=== PATIENT | male | born 1995 | race African-American/Black ===

== ENCOUNTER 2020-02-28 07:07 | Day surgery (SDC) | payer OTHER, SELFPAY ==
[2020-02-28 07:24] VITALS: BP 140/89; PULSE 83; RESP 16; TEMP 36.9; O2SAT 97; BMI 29.4
[2020-02-28] MEDS: Lactated Ringers 1,000 ML 100 ML IV ×2 (07:31→09:33)
[2020-02-28] MEDS: Bacitracin 500 UNITS/GM PACKET (08:54)
--- NOTE | 2020-02-28 08:58 | PCM.OPRPT ---
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 This had previously been attempted at repair but however it failed and clinical examination showed subsequent development of a cholesteatoma of the tympanic membrane and reattempted repair for prevention of development of middle ear disease and brought her cholesteatoma was advised. The risks of COVID-19 exposure with surgery in this time period was discussed and the patient was agreeable with this risk and return for reduced progression of his ear disease. The risks, alternatives, potential complications, and benefits were discussed at length and any questions answered to the patient and/or caregiver's satisfaction. Witnessed informed consent was obtained in the office, and the patient and/or caregiver was agreeable to proceed. Procedure went as follows: The patient was identified in the preoperative holding brought to the operating room and was placed under general anesthesia and intubated. The operative ear had been site marked preoperatively in accordance with the office notes patient exam and history. The patient was then placed under general anesthesia and the left ear prepped and draped in usual sterile fashion. The planned postauricular incision site for fascial graft harvest was then injected with 1% lidocaine with 100,000 epinephrine for a total of 2 mL. Through a #5 otic speculum the operative microscope was brought into the field and the external auditory canal and tympanic membrane visualized. The lateral canal wall was then injected with 1% lidocaine with 100,000 epinephrine for a total of 0.5 cc. Using a sickle knife the edge of the perforation was then sharply resected including the cholesteatoma developing within the tympanic membrane and withdrawn from the ear canal with a cup forceps. The position of the perforation allowed full visualization of the edge circumferentially and a healthy middle ear cleft was noted. Given this repair with a stuffed graft was then elected and an epinephrine soaked cotton ball was placed for hemostasis and attention turned to the fascial graft harvest. A 3 cm incision was then created a 15 blade scalpel posterior to the auricle at the previous injection site. The skin and subcutaneous tissues were then dissected and the posterior auricular muscle sharply transected. The subfascial plane was then widely developed. There is noted to be absent tissue consistent with his prior graft attempt. Posteriorly to this a 1.5 x 1.5 centimeter portion of temporalis fascia was then harvested and set aside on a Binh block for reconstruction of the tympanic membrane. The wound edges were then cauterized with electrocautery for hemostasis and closed deeply with interrupted 3-0 Vicryl sutures followed by running 5-0 Monocryl to the skin. This completed the graft harvest portion of the procedure. Attention was then turned to reconstruction of the tympanic membrane. The operative microscope was replaced and through an otic speculum the middle ear cleft filled with Gelfoam packing material after removal of the epinephrine soaked cotton balls. The previously harvested graft tissue was then placed in an underlay fashion ensuring that it completely covered the tympanic membrane perforation. An additional piece of fascia was then placed overlying the graft edge to ensure full coverage and Gelfoam material then placed to hold the composition tissue in place. Bacitracin ointment was then applied to secure the material and the patient then cleaned of prep solution. The patient was then returned to anesthesia, revived and extubated without complication having tolerated the procedure well. Type of Anesthesia:: General Anesthesiologist: Yair Francis Special Medications: none Specimen's removed: cholesteatoma Drains: none Estimated Blood Loss (mL): 0 mL Fluids Replaced: 1100 mL Grafts/Implants Used: fascia graft - Complications none - Admit VTE Documentation VTE Present on Admission: No VTE Mechan Device Prophylaxis: SCD's VTE Pharm Prophylaxis ordered?: No
--- NOTE | 2020-02-28 09:05 | CHO_PTH ---
PATIENT: KEI DANIEL LOC: [facility] U#:[id number] AGE/SX: 24/M ROOM: RE02/28/[address]: Dr. Yair Valle MD : 1995 BED: DIS: 02/28/2020 SPEC #: [id number] RECD: 02/28/20 09:31 STATUS: JAMILA ANDREA #: [id number] GRAHAM: 02/28/20 09:[address]: Yair Valle DEPT: SURGICAL PATHOLOGY RECD BY: Jesus Mae ENTERED: 02/28/20 09:41 SP TYPE: CHOLESTEAT OTHR DR: Dr. Luis Miguel Lewis MD Tissues: Soft tissues, NOS Procedures: Surgery Specimen Level III HEADER OPERATION: Tympanoplasty, grafting of autologous soft tissue PRE-OP DIAGNOSIS: Central perforation of tympanic membrane; cholesteatoma tympanum; left ear tinnitus; left conductive hearing loss TISSUE SUBMITTED: Cholesteatoma MICROSCOPIC DIAGNOSIS Cholesteatoma of left ear, biopsy: Benign polypoid fragment of fibroepithelium with degenerative change suggestive of cholesteatoma. AM:felipe 03/02/20 COMMENT Case has been reviewed in consultation with Dr. Carroll who concurs with the above diagnosis. IDC:SUHAS MICROSCOPIC DESCRIPTION Slides are reviewed. GROSS DESCRIPTION Received in fixative is one container labeled with the patient's name and designated cholesteatoma. The specimen consists of one irregular fragment of mccabe-white soft tissue that measures 0.2 x 0.1 x 0.1 cm. The specimen is totally submitted in one cassette. / SJ:felipe 02/28/20 TC:5 CPT: 33435
--- NOTE | 2020-02-28 09:08 | PCM.DC ---
- Discharge Diagnoses Current Active Problems: Current Active and Chronic Problems Tympanic membrane central perforation (Chronic) Cholesteatoma of tympanum, left ear (Chronic) You will use the following diet at home:: No restrictions Discharge Activity: Return to Normal Activity Call your doctor if your incision/area has: Sudden Increased Bleeding, Increased Pain/ Swelling Call your doctor if you observe: Fever of 101 or Higher, Uncontrolled pain Allergies/Adverse Reactions: Allergies No Known Allergies Allergy (Verified 02/28/20 07:14) Medications to take at Discharge Fluticasone 0.05% [Flonase Nasal [place]] 2 spray NASAL DAILY 02/21/20 Multivitamin 1 ea PO DAILY 02/21/20 Orders to be completed after discharge: CORONAVIRUS 19, ABBY SCREEN Time Frame: 02/24/20, Facility: [facility], Location: Laboratory Primary Care Physician: Luis Miguel Lewis MD [Primary Care Provider] - Test Results: Test results from this visit will be discussed in further detail at your follow-up appointment, if applicable. Please Follow Up With: Yair Valle MD When: 10 days
[2020-02-28 09:18] VITALS: BP 125/88; BP 140/89; PULSE 66; RESP 16; TEMP 36.3; O2SAT 97
[2020-02-28 09:30] VITALS: BP 119/85; BP 140/89; PULSE 96; RESP 16; O2SAT 100
[2020-02-28 09:40] VITALS: BP 114/73; BP 140/89; PULSE 72; RESP 16; O2SAT 98
[2020-02-28 09:45] VITALS: BP 128/86; BP 140/89; PULSE 66; RESP 16; TEMP 36.5; O2SAT 98
[2020-02-28 10:26] VITALS: BP 123/85; BP 140/89; PULSE 66; RESP 16; TEMP 36.1; O2SAT 100
== END 2020-02-28 11:04 | disposition home or self-care (01) ==
LOC: SDC 07:09 → AC 07:11
PROVIDERS: PCP Family Medicine; Referring Provider Otolaryngology; Visit Provider Otolaryngology
PROC: (CPT 15769; principal; 2020-02-28 08:35)
DX: H71.12 Cholesteatoma of tympanum, left ear (principal); H72.02 Central perforation of tympanic membrane, left ear; H93.12 Tinnitus, left ear; H90.12 Conductive hearing loss, unilateral, left ear, with unrestricted hearing on the contralateral side; Z11.59 Encounter for screening for other viral diseases
CPT/HCPCS: 00300; 15769; 69631; 87635; 88304; G2023; J7120; J2405; U0003

== ENCOUNTER 2021-12-14 18:42 | Emergency (ER) | payer BC, SELFPAY ==
[2021-12-14 18:43] VITALS: BP 160/87; PULSE 97; RESP 15; TEMP 36.4; O2SAT 99; BMI 30.9
[2021-12-14 18:53] VITALS: PULSE 95
--- NOTE | 2021-12-14 19:15 | EKG12_ITS ---
Test Reason : FLUTTER Blood Pressure : / mmHG Vent. Rate : 084 BPM Atrial Rate : 084 BPM P-R Int : 188 ms QRS Dur : 078 ms QT Int : 360 ms P-R-T Axes : 055 -12 020 degrees QTc Int : 425 ms Somatic/Motion Artifact Normal sinus rhythm Confirmed by TAWNYA VALERIO, CHAPIS ([id number]), telegraph editor MELISSA CAVAZOS ([id number]) on 12/16/2021 1:40:41 PM Referred By: JOSIANE Confirmed By:CHAPIS BOWLING MD
--- NOTE | 2021-12-14 19:25 | RAD_ITS ---
STUDY: X-RAY CHEST REASON FOR EXAM: Male, 26 years old. CHEST PAIN chest pain TECHNIQUE: XR Chest 1 View COMPARISON: None FINDINGS: There is no demonstrated pleural abnormality. Normal size heart. Normal mediastinum and renay. Normal visualized pulmonary arteries. Normal visualized aortic arch and descending thoracic aorta. Normal visualized thoracic spine. Normal visualized ribs, clavicles, and shoulders. There is no demonstrated abnormality of the visualized soft tissue structures of the upper abdomen. RAD/Chest 1 View (Portable) IMPRESSION: There are no acute findings. Electronically Signed: Jaylon So MD at 19:42 EDT ,
--- NOTE | 2021-12-14 19:32 | EDS_ITS ---
HPI History of Present Illness Chief Complaint: Palpitations Informant: patient Narrative Narrative: Patient presents with 3 episodes of palpitations. He had one last night and 2 earlier today. They lasted about 15 to 20 seconds. It was hard to say if his heart was slow or fast. He describes it as a fluttering feeling. He did not feel sick with this. He did not feel lightheaded short of breath or like he was going to pass out. No chest pain or pressure. Patient does use antihistamines for allergies but none of these are new or different. He drinks 2 or 3 cups of coffee a day. But he did not drink any today to see if this helped. He has not had these before. He states he really did not want to come in but his mother convinced him to do so. There is no history of significant heart disease. There is nothing he can do that starts or stops this. PFSH PFSH Medical History no medical history Home Medications fluticasone propionate 2 spray NASAL DAILY 02/21/20 [History Last Taken Unknown] multivitamin 1 ea PO DAILY 02/21/20 [History Last Taken Unknown] acetaminophen 500 mg PO Q4H PRN PRN tab 02/28/20 [Rx Last Taken Unknown] ibuprofen 400 mg PO Q6H PRN PRN tab 02/28/20 [Rx Last Taken Unknown] Allergy/AdvReac Type Severity Reaction Status Date / Time pistachio nut AdvReac Hives Verified 12/14/21 18:45 Social History Smoking Status: Never smoker ROS ROS ED Constitutional Constitutional ED: Denies chills or fever(s) Eyes Eyes: Denies change in vision ENT ENT ED: Denies rhinorrhea Cardiovascular Cardiovascular: Reports palpitations; Denies chest pain Respiratory/Chest Respiratory/Chest: Denies dyspnea Gastrointestinal Gastrointestinal: Denies nausea or vomiting Genitourinary Genitourinary ED: Denies dysuria Musculoskeletal Musculoskeletal: Denies myalgias Integumentary Denies rash Neurologic Neurologic: Denies headache(s) Psychiatric Psychiatric: Denies anxiety or depression Endocrine Endocrinology: Denies polydipsia or polyuria Allergic/Immunologic Allergic/Immunologic ED: Denies urticaria EXAM Physical Exam Const Vital Signs: 12/14/21 18:43 12/14/21 18:53 12/14/21 20:48 Temperature 97.6 F L Temperature Source Temporal Pulse Rate 97 95 86 Respiratory Rate 15 16 Respiratory Effort Normal Non-Labored Blood Pressure 160/87 H 144/89 H Blood Pressure Mean 111 107 Pulse Ox 99 99 Oxygen Delivery Method Room Air Room Air Positive well nourished and well developed General Appearance ED: well developed and NAD; Negative for cyanotic or diaphoretic HEENT Reports moist mucous membranes Negative for trauma Eyes General Eye ED: Negative for pale conjunctiva Neck no JVD Chest Wall inspection of chest normal and palpation of chest normal Resp normal respiratory effort and clear to auscultation bilaterally Effort and Inspection: Negative for pain with movement Auscultation: Negative for rales, rhonchi or wheezes Cardio regular rate, regular rhythm and no murmurs GI normal to inspection, nondistended, normoactive bowel sounds and non-tender Palpation: soft Back/Spine no CVA tenderness General Back: CVA tenderness Extremity normal to inspection Neuro oriented x3 Sensorium / Orientation: alert Psych mental status grossly normal Skin no rashes or lesions noted MDM MDM MDM Narrative Medical decision making narrative: CBC shows no acute abnormality. Normal white count hemoglobin and platelets. Electrolytes are unremarkable. Troponin is negative despite several episodes of palpitations the first which started about 24 hours ago. Chest x-ray shows no acute process. Patient has a heart rate of 80 now. He has no symptoms at all. He has not had symptoms here. I think he is okay for discharge. I did tell him to follow-up with his primary doc. They may do further studies such as Holter monitor. We discussed returning with pain, dyspnea, continuing fluttering feelings. Lab Data Attestation: I reviewed the patient's lab results. Labs: Laboratory Results - last 24 hr 12/14/21 12/14/21 12/14/21 19:27 19:27 19:27 WBC 6.3 RBC 5.19 Hgb 16.1 Hct 46.5 MCV 89.6 MCH 31.0 MCHC 34.6 RDW Std Deviation 37.6 RDW Coeff of Cathie 11.5 L Plt Count 247 MPV 9.6 Immature Gran % (Auto) 0.600 Neut % (Auto) 46.5 L Lymph % (Auto) 41.6 H Shannon % (Auto) 7.5 Eos % (Auto) 3.3 Baso % (Auto) 0.5 Absolute Neuts (auto) 2.9 Absolute Lymphs (auto) 2.61 Nucleated RBC % 0 Sodium 138 Potassium 4.4 Chloride 105 Carbon Dioxide 30.0 Anion Gap 3 L BUN 9 Creatinine 0.98 Estim Creat Clear Calc 129.09 Est GFR (MDRD) Af Amer 120 Est GFR (MDRD) Non-Af 99 BUN/Creatinine Ratio 9.2 L Glucose 84 Calcium 9.2 Troponin I High Sens 4 Radiography Diagnostic Testing: Clinical Impression(s) from Imaging Studies Chest X-Ray 12/14/21 19:25 IMPRESSION: There are no acute findings. Electronically Signed: Jaylon So MD at 19:42 EDT , EKG Initial EKG: Comments: EKG done for palpitations read by me shows a normal sinus rhythm with a rate of 84. No ectopy. No acute ST elevation or depression. There is some baseline artifact seen in lead V2. No sign of acute infarct or ischemia though. NV interval, QRS duration and QTc normal. Discharge Plan Triage Chief Complaint: Palpitations ED Provider: Campos Perez Dx/Rx/DC Orders Clinical Impression: Heart palpitations Instructions: ED Palpitations Prescriptions: No Action multivitamin 1 EACH tablet 1 ea PO DAILY RF: 0 fluticasone propionate 50 mcg/actuation spray,suspension 2 spray NASAL DAILY RF: 0 acetaminophen 500 MG tablet 500 mg PO Q4H PRN PRN (Reason: Pain Score 1-5/10) RF: 0 ibuprofen 200 MG tablet 400 mg PO Q6H PRN PRN (Reason: Pain Score 4-10/10) RF: 0 Primary Care Provider: Luis Miguel Lewis Referrals: Luis Miguel Lewis MD [Primary Care Provider] - 3-5 Days Disposition Disposition: Home, Self Care
[2021-12-14 19:34] LABS: Absolute Lymphocyte Count 2.61 X10^3/uL (0.83-4.51); Absolute Neutrophil Count 2.9 X10^3/uL (2.0-7.7); Basophil# 0.03 X10^3/uL; Basophil% 0.5 % (0-1); Eosinophil# 0.21 X10^3/uL; Eosinophils% 3.3 % (0-5); Hematocrit 46.5 % (40-54); Hemoglobin 16.1 g/dL (13.0-16.5); Lymphocyte # 2.61 X10^3/ul (0.83-4.51); Lymphocyte % 41.6 % (19-41); Mean Corp Hgb Conc 34.6 g/dL (32-36); Mean Corpuscular Volume 89.6 fL (80-94); Mean Platelet Vol. 9.6 fl (6.2-12.0); Monocyte# 0.47 X10^3/uL; Monocyte% 7.5 % (0-10); NRBC Flagged by Analyzer 0 % (0-5); Neutrophil # 2.91 X10^3/uL (2.7-7.7); Neutrophil % 46.5 % (47-70); Platelet Count 247 K/mm3 (150-450); RBC Distribution Width CV 11.5 % (11.6-14.6); RBC Distribution Width SD 37.6 fl (35.1-43.9); Red Blood Count 5.19 M/mm3 (4.6-6.2); White Blood Count 6.3 K/mm3 (4.4-11.0)
[2021-12-14 19:47] LABS: Anion Gap 3 (5-15); BUN 9 mg/dL (7-18); BUN/Creat Ratio 9.2 RATIO (10-20); Calcium,Total 9.2 mg/dL (8.5-10.1); Chloride 105 mmol/L (98-107); Creatinine, Serum 0.98 mg/dL (0.70-1.30); EST Glomerular Filtration Rate 99 mL/min (>60); Est Glom Filt Rate - Afr Amer 120 mL/min (>60); Estimated Creatinine Clearance 129.09 ml/min; Glucose 84 mg/dL (74-106); Potassium 4.4 mmol/L (3.5-5.1); Sodium Level 138 mmol/L (136-145)
[2021-12-14 20:23] LABS: Troponin-I HS (w/2H Reflex) 4 pg/mL (3.0-78.0)
[2021-12-14 20:48] VITALS: BP 144/89; PULSE 86; RESP 16; O2SAT 99
[2021-12-14 21:29] VITALS: BP 139/89; PULSE 82; RESP 16; O2SAT 97
[2021-12-14 22:04] LABS: Reflex Troponin-HS? (from REC) Y
== END 2021-12-14 21:30 | disposition home or self-care (01) ==
PROVIDERS: Emergency Provider Emergency Medicine; PCP Family Medicine; Visit Provider Emergency Medicine
DX: R00.2 Palpitations (principal)
CPT/HCPCS: 71045; 80048; 84484; 85025; 93005; 99284; A4216

== ENCOUNTER → 2022-04-11 | Outpatient (CLI) | payer BC, SELFPAY ==
--- NOTE | 2022-04-11 15:28 | NEURO_ITS ---
NCS and/or EMG Patient Report Ordering Doctor: Hanna Bacon DATE OF SERVICE: 04/11/22 Indication: Six months of intermittent, bilateral, hand and arm numbness. Symptoms are most prominent at night. No localized or radicular neck pain. Evaluate for nerve entrapment. Findings: Nerve conduction studies were performed in the right and left upper extremities. The right median motor study recording the abductor pollicis brevis showed a normal amplitude, normal distal latency and normal conduction velocity. The right ulnar motor study recording the abductor digiti minimi showed a normal amplitude, normal distal latency and normal conduction velocity. No conduction block or focal slowing was present across the elbow. Right median-ulnar lumbrical / interosseous motor latencies showed a normal median latency compared to the ulnar. The right median sensory response recording digit two showed a normal amplitude, latency and conduction velocity. The right ulnar sensory response recording digit five showed a normal amplitude, latency and conduction velocity. The right radial sensory response recording over the extensor snuff box showed a normal amplitude, latency and conduction velocity. The left median motor study recording the abductor pollicis brevis showed a normal amplitude, normal distal latency and normal conduction velocity. The left ulnar motor study recording the abductor digiti minimi showed a normal amplitude, normal distal latency and normal conduction velocity. No conduction block or focal slowing was present across the elbow. Left median-ulnar lumbrical / interosseous motor latencies showed a normal median latency compared to the ulnar. The left median sensory response recording digit two showed a normal amplitude, latency and conduction velocity. The left ulnar sensory response recording digit five showed a normal amplitude, latency and conduction velocity. The left radial sensory response recording over the extensor snuff box showed a normal amplitude, latency and conduction velocity. Needle EMG of the left upper extremity muscles was performed. No denervation was seen in any muscle. All motor unit morphology, activation and recruitment patterns were normal. Needle EMG of the right upper extremity was omitted due to the symmetry of symptoms and paucity of findings in the left upper extremity. Impression: This is a normal study. There is no electrophysiologic evidence of median neuropathy across the wrist on either side. In addition, there is no electr ophysiologic evidence of cervical radiculopathy, brachial plexopathy or other entrapment neuropathy in the left upper extremity. Please note: electrodiagnostic testing is appropriately 95% sensitive in detecting median neuropathy across the wrist when internal comparison studies are done, as was performed in this case. However, 5% of patients will have a false negative study. Presumably, in these patients, intermittent compression results in pain and paresthesias from ischemia, but without any fixed demyelination or axonal loss that can be demonstrated on electrodiagnostic studies. Thus, clinical correlation is required in the interpretation of this negative study. Renan Hopkins D.O. Multi Select Codes Neurology Neurology Interp Codes: 18516-47 Musc test done w/n test comp (interp) and 87510-32 Nr cnd test 13/> studies (interp)
== END | disposition home or self-care (01) ==
LOC: PSN 14:00
PROVIDERS: PCP Family Medicine; Visit Provider Physician Assistant
DX: R20.0 Anesthesia of skin (principal); R20.2 Paresthesia of skin
CPT/HCPCS: 95886; 95913